=== PATIENT | female | born 1940 | race Two or more races ===

== ENCOUNTER 2018-02-27 17:50 | Emergency (ER) | payer OTHER ==
[~2018-02-27] VITALS: Ht 167.6 cm; Wt 74.7 kg
[~2018-02-27 17:50] MED LIST: AMLO5TAB7 PO; ATOR40TA PO; BACL10TA PO; HYDR-4076 PO; METO25TA6 PO; ONDA4TAB5 PO; TRIA1TAB3 PO
--- NOTE | 2018-02-27 17:50 | NUR ---
IVONNE FROM HOME FOR POSSIBLE STROKE. PATIENT NOTED LEFT SIDED CONTINIOUS SEIZURE LIKE TWITCHING. 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 MD CHANDLER AT BEDSIDE. ORDERED TO GIVE ATIVAN 2MG IVP.
--- NOTE | 2018-02-27 17:51 | NUR ---
CONTACT OFFICER, PHARMACIST AT BEDSIDE
--- NOTE | 2018-02-27 17:55 | NUR ---
PATIENT WAS TAKEN TO CT
--- NOTE | 2018-02-27 17:56 | NUR ---
TELE STROKE CALLED AND SPOKE WITH MAC,WILL PAGE DR PHAM
[2018-02-27] MEDS ORDERED: CT SWABBABLE VALVE TRANS SET 1 EA INFUS.SET MC ONE (17:57)
[2018-02-27] MEDS ORDERED: IOHEXOL-350 100 ML VIAL IV ONE (17:57)
[2018-02-27] MEDS ORDERED: IV NS 0.9% 500 ML IV ONE (17:57)
[2018-02-27 18:04] LABS: EOSINOPHILS % (AUTO) 2.4 % (0.0-6.0); HEMOGLOBIN 12.1 g/dL (11.5-14.8); MEAN CORPUSCULAR HGB CONC 36 g/dl (31.0-36.0)
[2018-02-27 18:06] LABS: BASOPHILS # (AUTO) 0.1 /CMM (0.0-0.2); BASOPHILS % (AUTO) 1.4 % (0.0-2.0); HEMATOCRIT 34 % (33-45); LYMPHOCYTES # (AUTO) 3.7 /CMM (0.8-4.8); LYMPHOCYTES % (AUTO) 40.8 % (20.0-44.0); MEAN CORPUSCULAR VOLUME 84 fL (82-100); MONOCYTES # (AUTO) 0.6 /CMM (0.1-1.30); MONOCYTES % (AUTO) 6.3 % (2.0-12.0); NEUTROPHILS # (AUTO) 4.3 /CMM (1.8-8.9); NEUTROPHILS % (AUTO) 49.1 % (43.0-81.0); PLATELET COUNT (AUTO) 304 /CMM (150-450); RDW COEFFICIENT OF VARIATION 14.6 (11.5-15.0); RED BLOOD CELL COUNT(AUTO) 4.04 MIL/uL (4.0-5.2); WHITE BLOOD COUNT (AUTO) 8.9 K/uL (4.3-11.0)
--- NOTE | 2018-02-27 18:11 | NUR ---
PATIENT IS BACK FROM CT
[2018-02-27] MEDS ORDERED: LORAZEPAM INJ 2 MG/ML VIAL ONE ×2 (18:13)
[2018-02-27 18:26] LABS: CALCIUM, SERUM 9.4 mg/dL (8.5-10.1); CARBON DIOXIDE 24 mmol/L (21-32); CHLORIDE 106 mmol/L (98-107); CREATININE 1.2 mg/dL (0.6-1.3); GLUCOSE 117 mg/dL (74-106); POTASSIUM 4.2 mmol/L (3.5-5.1); SODIUM SERUM 141 mmol/L (136-145); UREA NITROGEN, BLOOD 24 mg/dL (7-18)
[2018-02-27 18:28] LABS: CHOLESTEROL 182 mg/dL (<200); HDL CHOLESTEROL 73 mg/dL (40-60); LDL 93 mg/dL (0-99); TRIGLYCERIDES 123 mg/dL (30-150)
[2018-02-27 18:30] LABS: ALANINE AMINOTRANSFERASE 18 U/L (12-78); ALBUMIN 3.7 g/dL (3.4-5.0); ALKALINE PHOSPHATASE 66 U/L (46-116); ASPARTATE AMINOTRANSFERASE 28 U/L (15-37); BILIRUBIN,DIRECT 0.1 mg/dL (0.0-0.2); BILIRUBIN,TOTAL 0.8 mg/dL (0.2-1.0); TOTAL PROTEIN, SERUM 7.7 g/dL (6.4-8.2)
[2018-02-27] MEDS ORDERED: KEPPRA 1000 MG in IV NS 100 ML IV ONE (18:30)
[2018-02-27] MEDS ORDERED: LORAZEPAM INJ 2 MG/ML VIAL IV ONE ×2 (18:30→19:00)
[2018-02-27 18:36] LABS: TROPONIN I < 0.017 ng/mL (0.00-0.056)
[2018-02-27 18:41] LABS: INR 0.92 (0.85-1.15)
--- NOTE | 2018-02-27 19:25 | NUR ---
REPORT GIVEN TO PRASAD VERDIN FOR [facility].
--- NOTE | 2018-02-27 20:26 | NUR ---
CALLED [facility] AND SPOKE WITH SPLASH LINE OPERATOR LUCY. GAVE INFO ON PT AND WAS TOLD THAT A [facility] MD WOULD GIVE US A CALL BACK SOON
--- NOTE | 2018-02-27 21:47 | NUR ---
PT ACCEPTED TO [facility] [id number]. # FOR REPORT [phone]. ACCEPTED BY DR OLSON. ETA FOR [facility] [id number]
[2018-02-27 21:48] VITALS: BP 138/72
--- NOTE | 2018-02-27 22:06 | NUR ---
REPORT GIVEN TO [facility] PRASAD DEL ROSARIO FOR [facility].
--- NOTE | 2018-02-27 22:49 | NUR ---
TRANSPORT TEAM BEDSIDE TO TRANSPORT PT TO [facility]. REPORT GIVEN TO TRANSPORT EMS Ciara MANRIQUE FOR [facility].
--- NOTE | 2018-02-27 22:58 | NUR ---
Patient Tranfers to outside Facility Physician: WHITNEY Location: [facility] REPORT GIVE TO PROPERTY SPECIALISTPRASAD DEL ROSARIO FOR [facility]
== END 2018-02-27 23:21 | disposition short-term general hospital (02) ==
LOC: ER 17:51
DX: R53.1 Weakness (principal); G40.109 Localization-related (focal) (partial) symptomatic epilepsy and epileptic syndromes with simple partial seizures, not intractable, without status epilepticus; I69.349 Monoplegia of lower limb following cerebral infarction affecting unspecified side; R47.01 Aphasia; I65.23 Occlusion and stenosis of bilateral carotid arteries; I10 Essential (primary) hypertension; Z99.3 Dependence on wheelchair; Z88.0 Allergy status to penicillin; Z88.8 Allergy status to other drugs, medicaments and biological substances
CPT/HCPCS: 36415; 70450; 70496; 70498; 71045; 80048; 80061; 80076; 82962; 84484; 85025; 85240; 85730; 86850; 93005; 96365; 96375; 99291; 99292; A4606; J1953; J2060 ×2; J7030; J7040; Q9967; Z7610